=== PATIENT | female | born 1965 | race Caucasian/White ===

== ENCOUNTER → 2017-12-23 | Outpatient (CLI) | payer BC ==
[~2017-12-23] MED LIST: DIPH0.5D12 IM; FLU60VIA41 IM; IBUP200C74 PO; NAPR220C12 PO; OMEP40CA48 PO
--- NOTE | 2017-12-23 13:11 | RADIOLOGY IMAGING REPORT ---
[place] [facility] [place] Sujatha Rojas : 1965 MR: [id number] V: [id number] EXAM DATE: ORDERING PHYSICIAN: KIMANI SAEZ TECHNOLOGIST: Location: [facility] [place] Patient: Sujatha Rojas : 1965 Visit/Account:[id number] Date of Sevice: 12/23/2017 HIP RIGHT HISTORY: right hip pain Pelvis and right hip films FINDINGS: No acute bony pathology. Pelvic girdle is intact with no fractures. No osseous pathology. Specific ally the right hip demonstrates a well-maintained joint spaces with no DJD or bony productive changes of any significance. SI joints and lower lumbar spines normal. IMPRESSION: 1. Negative pelvis and right hip films for acute pathology or any significant DJD Report Dictated By: Aleks Ragland MD at 12/23/2017 1:05 PM Report E-Signed By: Aleks Ragland MD at 12/23/2017 1:06 PM WSN:[email or web address]
== END ==
LOC: RAD 10:45
PROVIDERS: ATTEND Nurse Practitioner Family
DX: M25.551 Pain in right hip (principal)